=== PATIENT | female | born 1995 | race African-American/Black ===

== ENCOUNTER 2022-07-31 17:45 | Inpatient (IN) ==
[2022-07-31] MEDS ORDERED: METHYLERGONOVINE 0.2 MG/1 ML AMP IM PRN (18:19)
[2022-07-31] MEDS ORDERED: ONDANSETRON 4 MG/2 ML VIAL IV PRN ×2 (18:19→20:13)
[2022-07-31] MEDS ORDERED: OXYTOCIN/LR 20 UNIT/1,000 ML BAG IV ONE ×3 (18:19→20:13)
[2022-07-31] MEDS ORDERED: TRANEXAMIC ACID 1,000 MG in SODIUM CHLORIDE 0.9% 100 ML IV PRN (18:19)
[2022-07-31] MEDS ORDERED: miSOPROStoL 200 MCG TABLET RECTAL PRN (18:19)
[2022-07-31] MEDS ORDERED: MEPERIDINE 25 MG/1 ML VIAL IV PRN (18:19)
[2022-07-31] MEDS ORDERED: CARBOPROST TROMETHAMINE 250 MCG/ML AMP IM PRN (18:19)
[2022-07-31] MEDS ORDERED: AMPICILLIN INJ 2,000 MG in SODIUM CHLORIDE 0.9% 100 ML IV ONE (18:20)
[2022-07-31] MEDS ORDERED: diphenhydrAMINE 50 MG/1 ML VIAL IV PRN ×2 (18:22)
[2022-07-31] MEDS ORDERED: ePHEDrine 50 MG/ML VIAL IV PRN (18:22)
[2022-07-31] MEDS ORDERED: PROMETHAZINE 25 MG/1 ML VIAL IM ONE (18:22)
[2022-07-31] MEDS ORDERED: CITRIC ACID/SODIUM CITRATE 30 ML UDCUP PO ONE (18:22)
[2022-07-31] MEDS ORDERED: FAMOTIDINE 20 MG/2 ML VIAL IV ONE (18:22)
[2022-07-31] MEDS ORDERED: NALOXONE 0.4 MG/ML VIAL IV PRN (18:22)
[2022-07-31] MEDS ORDERED: hydrOXYzine HCL 25 MG/1 ML VIAL IM PRN (18:22)
[2022-07-31] MEDS ORDERED: LACTATED RINGERS 1,000 ML IV ONE (18:22)
[2022-07-31] MEDS ORDERED: fentaNYL 2 MCG/ROPIV 0.2% EPID 100 ML EPIDURAL SCH (18:30)
[2022-07-31 18:35] LABS: Basophils % 0.4 % (0.0-0.8); Eosinophils # 0.1 10*3/uL (0.0-0.87); Eosinophils % 0.8 % (0.00-10.9); Hematocrit 30.4 VOL% (35.7-47.0); Hemoglobin 9.9 GM/DL (12.0-16.0); Immature Granulocytes % 0.6 %; Immature Granulocytes Absolute 0.06 #; Lymphocytes # 1.9 10*3/uL (1.4-4.0); Lymphocytes % 20.6 % (21.3-54.2); Mean Corpuscular HGB Conc 32.6 GM/DL (32-36); Mean Corpuscular Volume 82.2 FL (87-102); Mean Platelet Volume 11.7 FL (9.6-12.0); Monocytes # 0.6 10*3/uL (0.11-0.8); Monocytes % 6.4 % (1.7-12.7); Neutrophils % 71.2 % (38.7-73.9); Platelet Count 201 T/CUMM (130-400); White Blood Count 9.4 T/CUMM (4-12)
[2022-07-31 18:56] LABS: Albumin 2.5 G/DL (3.4-5.0); Bilirubin,Total 0.4 MG/DL (0.20-1.00); Calcium 9.1 MG/DL (8.5-10.1); Osmolality,Calculated 271.7 MOS/KG (273-304); Potassium 3.5 MMOL/L (3.5-5.1); Total Protein 7.3 G/DL (6.4-8.2)
[2022-07-31] MEDS: LACTATED RINGERS 1,000 ML IV SCH (19:20)
[2022-07-31] MEDS ORDERED: SODIUM CHLORIDE 0.9% 100 ML IV ONE (19:57)
[2022-07-31] MEDS ORDERED: miSOPROStoL 200 MCG TABLET ONE (19:57)
[2022-07-31] MEDS ORDERED: TRANEXAMIC ACID 1,000 MG/10 ML VIAL ONE (19:57)
[2022-07-31] MEDS ORDERED: CARBOPROST TROMETHAMINE 250 MCG/ML AMP IM ONE (19:58)
[2022-07-31] MEDS ORDERED: METHYLERGONOVINE 0.2 MG/1 ML AMP ONE (19:58)
[2022-07-31] MEDS ORDERED: LABETALOL 100 MG/20 ML VIAL IV ONE ×3 (20:00→20:02)
[2022-07-31] MEDS ORDERED: LABETALOL 20 MG/4 ML SYRINGE IV PRN (20:11)
[2022-07-31] MEDS ORDERED: CALCIUM GLUCONATE RIDER 1,000 MG/50 ML PREMIX IV ONE (20:11)
[2022-07-31] MEDS ORDERED: MAGNESIUM SULF RIDER 4 GM/100 ML PREMIX IV ONE (20:11)
[2022-07-31] MEDS ORDERED: ACETAMINOPHEN 325 MG TABLET PO PRN (20:13)
[2022-07-31] MEDS ORDERED: DIPH/TET/ACEL PERT BOOSTER VACCINE 0.5 ML VIAL IM ONE (20:13)
[2022-07-31] MEDS ORDERED: MEASLES/MUMPS/RUBELLA VACCINE 0.5 ML VIAL SUBCUT ONE (20:13)
[2022-07-31] MEDS ORDERED: WITCH HAZEL PADS 100/JAR TOP PRN (20:13)
[2022-07-31] MEDS ORDERED: HYDROCORTISONE 2.5% RECTAL CREAM 30 GM TUBE TOP PRN (20:13)
[2022-07-31] MEDS ORDERED: IBUPROFEN 800 MG TABLET PO PRN (20:13)
[2022-07-31] MEDS ORDERED: BENZOCAINE 20%/MENTHOL 0.5% SPRAY 56 GM CAN TOP PRN (20:13)
[2022-07-31] MEDS ORDERED: LANOLIN 50% CREAM 0.3 OZ TUBE TOP PRN (20:13)
[2022-07-31] MEDS ORDERED: oxyCODONE/ACETAMINOPHEN 5-325 MG TABLET PO PRN (20:13)
[2022-07-31] MEDS ORDERED: RHO(D) IMMUNE GLOBULIN 300 MCG SYRINGE IM ONE (20:13)
[2022-07-31] MEDS ORDERED: BISACODYL 10 MG SUPP RECTAL PRN (20:13)
[2022-07-31] MEDS ORDERED: MAGNESIUM SULF DRIP 40 GM/1,000 ML ML IV SCH (20:30)
[2022-07-31 20:38] LABS: Cord Venous Blood HCO3 22.5 MMOL/L; Cord Venous Blood PCO2 38.8 MMHG
[2022-07-31 20:58] LABS: Bilirubin,Urine Negative (Negative); Blood, Urine Small mg/dL (Negative); Glucose,Urine (UA) Negative (Negative); Ketones,Urine 20 mg/dL (Negative); Mucus,Urine Occasional /LPF (Occasional); Nitrite,Urine Negative (Negative); Protein,Urine Negative (Negative); RBC,Urine 2 /HPF (0-4); Squamous Epithelial Cell,Urine Occasional /HPF (0-10); Urine Appearance CLEAR (Clear); Urine Color Yellow (Yellow); Urine Specific Gravity 1.024 (1.001-1.035); Urine Urobilinogen < 2.0 eU/dL (<2.0)
[2022-07-31 21:20] LABS: Bilirubin,Direct < 0.100 MG/DL (0.0-0.20); Uric Acid 3.7 MG/DL (2.6-6.0)
[2022-07-31] MEDS: oxyCODONE/ACETAMINOPHEN 5-325 MG TABLET PO PRN (21:46)
[2022-07-31] MEDS: DOCUSATE SODIUM 100 MG CAPSULE PO SCH (21:47)
[2022-07-31 21:52] LABS: Protein/Creatinine Ratio,Urine 0.2 RATIO
[2022-07-31 22:25] LABS: Bilirubin,Urine Negative (Negative); Blood, Urine Small mg/dL (Negative); Glucose,Urine (UA) Negative (Negative); Ketones,Urine 20 mg/dL (Negative); Mucus,Urine Occasional /LPF (Occasional); Nitrite,Urine Negative (Negative); Protein,Urine Negative (Negative); RBC,Urine 6 /HPF (0-4); Squamous Epithelial Cell,Urine Occasional /HPF (0-10); Urine Appearance CLEAR (Clear); Urine Color Yellow (Yellow); Urine Urobilinogen < 2.0 eU/dL (<2.0)
[2022-07-31] MEDS ORDERED: AMPICILLIN INJ 1,000 MG in SODIUM CHLORIDE 0.9% 100 ML IV SCH (22:30)
[2022-07-31 22:46] LABS: Protein/Creatinine Ratio,Urine 0.2 RATIO
[2022-08-01 00:21] LABS: Hepatitis B Surface Ag Quant < 0.10 Index; Hepatitis B Surface Ag Result Non-Reactive (NonReactive)
[2022-08-01 00:33] LABS: HIV Antigen/Antibody Result Nonreactive (Nonreactive); Rubella Antibody IgG Result Reactive (NonReactive)
[2022-08-01 04:53] LABS: Basophils % 0.3 % (0.0-0.8); Eosinophils % 0.2 % (0.00-10.9); Hematocrit 31.6 VOL% (35.7-47.0); Hemoglobin 9.8 GM/DL (12.0-16.0); Immature Granulocytes % 0.6 %; Immature Granulocytes Absolute 0.06 #; Lymphocytes # 1.7 10*3/uL (1.4-4.0); Lymphocytes % 15.6 % (21.3-54.2); Mean Corpuscular Volume 84.5 FL (87-102); Mean Platelet Volume 12.7 FL (9.6-12.0); Monocytes # 0.6 10*3/uL (0.11-0.8); Monocytes % 5.2 % (1.7-12.7); Neutrophils % 78.1 % (38.7-73.9); Platelet Count 196 T/CUMM (130-400); Red Blood Count 3.74 MC/CUMM (3.8-5.5); Red Cell Distribution Width 16.1 % (9.3-17.3); White Blood Count 10.8 T/CUMM (4-12)
[2022-08-01] MEDS: LACTATED RINGERS 1,000 ML IV SCH (05:50)
[2022-08-01] MEDS: oxyCODONE/ACETAMINOPHEN 5-325 MG TABLET PO PRN ×2 (16:59→23:52)
[2022-08-01] MEDS: DOCUSATE SODIUM 100 MG CAPSULE PO SCH (21:27)
[2022-08-02 07:37] VITALS: BP 112/72
[2022-08-02] MEDS: DOCUSATE SODIUM 100 MG CAPSULE PO SCH (08:20)
== END 2022-08-02 12:55 | disposition home or self-care (01) | DRG 560 ==
LOC: N.LDOUT 17:45 → N.LD 17:47 → N.OB 08-01 09:50
PROVIDERS: ADMIT Obstetrics & Gynecology; ATTEND Obstetrics & Gynecology